=== PATIENT | female | born 1970 | race African-American/Black ===

== ENCOUNTER 2018-05-26 10:51 | Emergency (ER) | payer MEDICAID | END 2018-05-26 14:21 | disposition left against medical advice (07) | LOC: ER 14:09 | DX: M54.9 Dorsalgia, unspecified (principal); Z53.21 Procedure and treatment not carried out due to patient leaving prior to being seen by health care provider ==

== ENCOUNTER 2021-07-03 21:01 | Emergency (ER) | payer SELFPAY ==
[~2021-07-03] VITALS: Ht 157.5 cm; Wt 67.0 kg
[2021-07-03 21:49] VITALS: BP 137/78
[2021-07-04] MEDS ORDERED: IBUPROFEN 600MG TABLET PO ONE (01:30)
[2021-07-04] MEDS ORDERED: ACET-2708 MT (01:40)
== END 2021-07-04 02:19 | disposition home or self-care (01) ==
LOC: ER 21:01
DX: S39.012A Strain of muscle, fascia and tendon of lower back, initial encounter (principal); S16.1XXA Strain of muscle, fascia and tendon at neck level, initial encounter; M79.604 Pain in right leg; V49.59XA Passenger injured in collision with other motor vehicles in traffic accident, initial encounter; Y93.89 Activity, other specified; Y92.488 Other paved roadways as the place of occurrence of the external cause; Z98.61 Coronary angioplasty status
CPT/HCPCS: 99282

== ENCOUNTER 2024-03-29 17:25 | Emergency (ER) | payer MEDICAID, OTHER ==
[~2024-03-29] VITALS: Ht 157.5 cm; Wt 70.4 kg
[~2024-03-29 17:25] MED LIST: ACET-2708 MT
[2024-03-29 17:34] VITALS: O2SAT 98
[2024-03-29] MEDS ORDERED: LIDO700A15 TP (21:48)
[2024-03-29] MEDS ORDERED: NAPR-1176 MT (21:48)
[2024-03-29] MEDS: KETOROLAC 15MG/ML VIAL IM ONE (21:51)
[2024-03-29 22:16] VITALS: BP 112/76; PULSE 83; RESP 18; TEMP 98.1
== END 2024-03-29 22:00 | disposition home or self-care (01) ==
LOC: ER 17:25
DX: R07.81 Pleurodynia (principal); Z98.890 Other specified postprocedural states
CPT/HCPCS: 99283; 71101; 96372; J1885